=== PATIENT | male | born 1980 | race Caucasian/White ===

== ENCOUNTER 2023-03-24 09:45 | Inpatient (IN) ==
[2023-03-24] MEDS ORDERED: SODIUM CHLORIDE 0.9% 500 ML IV STA (10:27)
[2023-03-24] MEDS ORDERED: KETOROLAC TROMETHAMINE 15 MG/ML VIAL IV STA (10:27)
[2023-03-24 10:33] LABS: POC Urine Bilirubin Negative (Negative); POC Urine Blood Negative (Negative); POC Urine Glucose Normal (Normal); POC Urine Ketones Negative (Negative); POC Urine Leukocytes Negative (Negative); POC Urine Nitrite Negative (Negative); POC Urine Protein Trace (Negative); POC Urine Urobilinogen Normal (Normal); POC Urine pH 5 (4.5-7.5)
[2023-03-24 10:45] LABS: Basophils # (auto) 0.02 K/uL (0.00-0.20); Basophils % (auto) 0.2 %; Eosinophils # (auto) 0.11 K/uL (0.00-0.50); Eosinophils % (auto) 1.4 %; Hematocrit (blood only) 51.1 % (42.0-52.0); Hemoglobin 17.5 g/dl (14.0-18.0); Immature Granulocytes # (auto) 0.02 K/uL (0.01-0.20); Immature Granulocytes % (auto) 0.2 %; Lymphocytes # (auto) 1.16 K/uL (1.20-3.40); Lymphocytes % (auto) 14.5 %; Mean Corpuscular Hemoglobin 28.5 pg (25.0-34.0); Mean Corpuscular Hgb Conc 34.2 g/dL (32.0-36.0); Mean Corpuscular Volume 83.2 fL (80.0-100.0); Monocytes # (auto) 0.47 K/uL (0.11-0.59); Monocytes % (auto) 5.9 %; Neutrophils # (auto) 6.23 K/uL (1.40-6.50); Neutrophils % (auto) 77.8 %; Platelet Count 182 K/uL (130-400); RDW Standard Deviation 36.3 fL (36.4-46.3); Red Blood Count 6.14 M/uL (4.70-6.10); White Blood Count 8.01 K/ul (4.8-10.8)
[2023-03-24 10:49] LABS: Appearance Urine Clear (Clear); Bilirubin Urine Negative (Negative); Blood Urine Negative (Negative); Color Urine Yellow; Glucose Urine UA Negative (Negative); Ketones Urine Negative (Negative); Leukocyte Esterase Urine Negative (Negative); Nitrite Urine Negative (Negative); Protein Urine Negative (Negative); Specific Gravity Urine 1.025 (1.000-1.030); Urobilinogen Urine Negative (Negative); pH Urine 5.5 (4.5-7.5)
[2023-03-24 11:00] LABS: Albumin Globulin Ratio 1.7 (0.9-2); Albumin Level 4.9 gm/dl (3.4-5.0); BUN Creatinine Ratio 12.2 (10-20); Bilirubin,Total 0.5 mg/dl (0.2-1.0); Calcium 10.2 mg/dl (8.6-10.3); Creatinine Clr Calc Pharmacy 94.1 ml/min; Est GFR (African American) 108.2 ml/min; Est GFR (Non-African American) 93.4 ml/min; Globulin 2.9 gm/dl (2.5-4.0); Potassium 3.7 mmol/L (3.5-5.1); Total Protein 7.8 gm/dl (6.0-8.3)
--- NOTE | 2023-03-24 11:36 | Emergency Department Note ---
Impression & Plan Left sided abdominal pain, Partial small bowel obstruction ED Provider Note HISTORY OF PRESENT ILLNESS: Patient is a 42-year-old male presenting with left flank pain. Patient reports he has had pain in his left flank for the last week. Denies any trauma to the back or flank region. Reports that he has a history of kidney stones and initially thought it was for this. He states that the pain has been persistent and a 12 out of 10 for the last few days. He denies any nausea or vomiting. Denies any dysuria or hematuria. He denies any history of abdominal surgeries. He locates the pain to the left mid abdomen with radiation into the left flank and back. Denies any diarrhea. Denies any fevers ROS: as above PHYSICAL EXAM: Constitutional: Patient appears in no acute distress. HENT: Head: Normocephalic and atraumatic. Eyes: EOMI, PERRL Mouth/Throat: Mucous membranes moist. Neck: Trachea midline. Neck supple. Cardiovascular: RRR, No murmurs, rubs or gallops. Intact distal pulses. Pulmonary/Chest: No respiratory distress. Breath sounds clear and equal bilaterally. No wheezes or rales. Abdominal: Abdomen soft, no rebound or guarding. Left-sided abdominal TTP Back: No midline spinal tenderness, no paraspinal tenderness, no CVA tenderness. Musculoskeletal: No edema, tenderness or deformity noted. Skin: Warm and dry. No rash, erythema, pallor or cyanosis Psychiatric: Appropriate mood and affect for situation. Neurological: Alert and keenly responsive. CN II-XII grossly intact, moving all extremities equally and fully. MDM: - Vitals signs showed hypotension and tachycardia. - History obtained via patient. Patient presents with left flank and left abdominal pain. Patient reports he been having pain in his left flank for the last week. Denies any trauma to the back or flank region. He reports a history of kidney stones but this pain is significantly worse than normal. Denies any nausea or vomiting. Nuys any dysuria or hematuria. Denies any diarrhea. He denies any history of abdominal surgeries. - Chronic conditions affecting care: kidney stones - Differential diagnoses include, but are not limited to: UTI; pyelonephritis; ureteral stone; colitis; diverticulitis; small bowel obstruction - Order placed for continuous cardiac monitoring. At this time, monitor showed rate of 100 bpm with normal sinus rhythm, per my interpretation. - External medical records reviewed. - Laboratory workup interpreted by myself showed normal WBC; stable electrolytes - UA negative for infection - CT abdomen/pelvis wo contrast showed distended and fluid-filled loops of small bowel in the left upper quadrant with some surrounding infiltration with 2 apparent transition points representing at least a partial bowel obstruction. - Patient given 1L NS and 15 mg IV toradol in ER. Patient appears comfortable on reassessment. - Discussed case with surgeon station usher, Dr. Baum. She reviewed the patient's images and recommended admission for observation. Patient does not have a significant leukocytosis and is having no change in the bowel movements, and no nausea or vomiting. No surgical intervention at this time - Discussion was had with technical healthcare consultant about patient's case and need for admission - Hospitalist consulted for admission - Patient admitted to Health systemist service for further evaluation and management. ASSESSMENT AND PLAN: Diagnosis: left-sided abdominal pain; partial small bowel obstruction Plan: admit Past Med/Surg History Social History Smoking Status: Never smoker Preferred Language: Palestinian Feels Safe at Home: Yes Allergies Allergies Allergy/AdvReac Type Severity Reaction Status Date / Time No Known Allergies Allergy Unverified 11/15/14 16:35 Results & Data (ED) Vital Signs Vital Signs - 24 hr 03/24/23 10:01 Temperature 36.9 C Temperature Source Temporal Artery Scan Pulse Rate 98 H Respiratory Rate 17 Respiratory Effort / Characteristics Non-Labored Spontaneous Respiratory Depth Normal Blood Pressure 167/103 H Blood Pressure Mean 124 Pulse Oximetry 99 Oxygen Delivery Method Room Air Sepsis Recent Fever Within 48 Hours No Sepsis New/Unexplained Change in Mental Status No Sepsis Action Taken by Nursing No Action Required Laboratory Data 03/24/23 10:20 03/24/23 10:20 Lab Results 03/24/23 03/24/23 Range/Units 10:15 10:20 WBC 8.01 (4.8-10.8) K/ul RBC 6.14 H (4.70-6.10) M/uL Hgb 17.5 (14.0-18.0) g/dl Hct 51.1 (42.0-52.0) % MCV 83.2 (80.0-100.0) fL MCH 28.5 (25.0-34.0) pg MCHC 34.2 (32.0-36.0) g/dL RDW Std Deviation 36.3 L (36.4-46.3) fL RDW Coeff of Alexandra 12.0 (11.5-14.5) % Plt Count 182 (130-400) K/uL MPV 9.0 L (9.4-12.4) fL Immature Gran % (Auto) 0.2 % Neut % (Auto) 77.8 % Lymph % (Auto) 14.5 % [place] % (Auto) 5.9 % Eos % (Auto) 1.4 % Baso % (Auto) 0.2 % Neut # (Auto) 6.23 (1.40-6.50) K/uL Lymph # (Auto) 1.16 L (1.20-3.40) K/uL [place] # (Auto) 0.47 (0.11-0.59) K/uL Eos # (Auto) 0.11 (0.00-0.50) K/uL Baso # (Auto) 0.02 (0.00-0.20) K/uL Immature Gran # (Auto) 0.02 (0.01-0.20) K/uL Sodium 140 (136-145) mmol/L Potassium 3.7 (3.5-5.1) mmol/L Chloride 105 (98-107) mmol/L Carbon Dioxide 27 (21-32) mmol/L Anion Gap 8 (3-11) BUN 12 (6-23) mg/dl Creatinine 0.98 (0.6-1.4) mg/dl Est Cr Clr Drug Dosing 94.1 ml/min Est GFR ( Amer) 108.2 ml/min Est GFR (Non-Af Amer) 93.4 ml/min BUN/Creatinine Ratio 12.2 (10-20) Glucose 93 (70-99(Fasting)) mg/dl Calcium 10.2 (8.6-10.3) mg/dl Total Bilirubin 0.5 (0.2-1.0) mg/dl AST 20 (13-39) U/L ALT 22 (7-52) U/L Alkaline Phosphatase 74 (34-104) U/L Total Protein 7.8 (6.0-8.3) gm/dl Albumin 4.9 (3.4-5.0) gm/dl Globulin 2.9 (2.5-4.0) gm/dl Albumin/Globulin Ratio 1.7 (0.9-2) Urine Color Yellow Urine Appearance Clear (Clear) Urine pH 5.5 (4.5-7.5) POC Urine pH 5 (4.5-7.5) Ur Specific [place] 1.025 (1.000-1.030) Urine Protein Negative (Negative) POC Urine Protein Trace H (Negative) Urine Glucose (UA) Negative (Negative) POC Ur Glucose (UA) Normal (Normal) Urine Ketones Negative (Negative) POC Urine Ketones Negative (Negative) Urine Blood Negative (Negative) POC Urine Blood Negative (Negative) Urine Nitrite Negative (Negative) POC Urine Nitrite Negative (Negative) Urine Bilirubin Negative (Negative) POC Urine Bilirubin Negative (Negative) Urine Urobilinogen Negative (Negative) POC Urine Urobilinogen Normal (Normal) Ur Leukocyte Esterase Negative (Negative) POC U Leukocyte Esteras Negative (Negative) Administered Medications Discontinued Medications Sodium Chloride (Nss) 500 mls @ 999 mls/hr IV .Q31M STA Stop: 03/24/23 10:57 Last Admin: 03/24/23 11:07 Dose: 999 mls/hr Documented By: CPB Ketorolac Tromethamine (Ketorolac Tromethamine 15 Mg/Ml Vial) 15 mg IV ONE STA Stop: 03/24/23 10:28 Last Admin: 03/24/23 11:07 Dose: 15 mg Documented By: CPB Imaging Data Radiologist's Impression: Abdomen/Pelvis CT 03/24/23 11:16 CT SCAN OF THE ABDOMEN AND PELVIS WITHOUT IV CONTRAST CLINICAL HISTORY: Left flank pain. COMPARISON STUDY: No priors. TECHNIQUE: CT scan of the abdomen and pelvis is performed from the lung bases to the proximal femora. Images are reviewed in the axial, sagittal, and coronal planes. IV contrast was not administered for this examination. A dose lowering technique was utilized adhering to the principles of ALARA. CT DOSE: 922.62 mGy.cm FINDINGS: Lung bases: The heart is normal in size and without pericardial effusion. The lung bases are clear. There is a small hiatal hernia. Liver: The unenhanced liver is normal in size, contour, and attenuation. There is no intrahepatic biliary ductal dilatation. Gallbladder: Unremarkable. Spleen: Normal in size and attenuation. Pancreas: Unremarkable. Adrenal glands: Unremarkable. Kidneys: The unenhanced kidneys are normal in size and without hydronephrosis. No renal calculi are identified and there is no ureteral stone. There is no evidence of contour deforming renal mass lesion. Abdominal vasculature: The abdominal aorta is normal in course and caliber. Bowel: There are distended loops of fluid-filled small bowel in the left upper quadrant. These measure up to 3.1 cm in diameter and there is mild strandy infiltration. There are 2 transition points suggested in the left upper quadrant on images #97 and image #141. The upstream and downstream small bowel loops appear decompressed. No thick-walled bowel loops identified. There is no pneumatosis intestinalis or portal venous gas. There is mild colonic diverticulosis without CT evidence of acute diverticulitis. Mild/moderate fecal retention is noted throughout the colon. The appendix is well-visualized and normal. Peritoneum: There is no intraperitoneal free air or abdominal ascites. There is a fat-containing umbilical hernia. Lymphadenopathy: None. Pelvic viscera: The prostate gland is mildly enlarged and heterogeneous. The bladder wall appears circumferentially thickened. There is a small fat- containing right inguinal hernia. Skeletal structures: No lytic or blastic lesions are seen. There is mild sclerotic change in the left sacroiliac joint. IMPRESSION: 1. There are distended and fluid-filled loops of small bowel in the left upper quadrant with mild surrounding infiltration as detailed above. There are 2 apparent transition points, and this likely represents at least a partial small bowel obstruction. This is favored over a nonspecific enteritis. Given the appearance a closed loop type obstruction is not excluded. Surgical evaluation is advised. 2. No focally thick-walled bowel loops identified. There is no pneumatosis intestinalis or portal venous gas. No intraperitoneal free air is seen. 3. No renal calculi are identified. 4. Mild colonic diverticulosis without CT evidence of acute diverticulitis. 5. The bladder wall appears thickened. Correlate with clinical findings and urinalysis. 6. Additional findings as above. ACT 112: Negative or not required by law. Electronically signed by: Lico Aguirre M.D. 03/24/2023 12:58 PM Discharge Plan Visit Data Chief Complaint: Flank Pain Stated Complaint: LEFT SIDE FLANK PAIN ED Provider: Anabella Mckenna Discharge Problem: Left sided abdominal pain, Partial small bowel obstruction Forms Stand Alone Forms: My [facility] Referrals Referrals: PCP,NO [Primary Care Provider] -
--- NOTE | 2023-03-24 13:00 | CT Scan Report ---
CT SCAN OF THE ABDOMEN AND PELVIS WITHOUT IV CONTRAST CLINICAL HISTORY: Left flank pain. COMPARISON STUDY: No priors. TECHNIQUE: CT scan of the abdomen and pelvis is performed from the lung bases to the proximal femora. Images are reviewed in the axial, sagittal, and coronal planes. IV contrast was not administered for this examination. A dose lowering technique was utilized adhering to the principles of ALARA. CT DOSE: 922.62 mGy.cm FINDINGS: Lung bases: The heart is normal in size and without pericardial effusion. The lung bases are clear. T here is a small hiatal hernia. Liver: The unenhanced liver is normal in size, contour, and attenuation. There is no intrahepatic catie iary ductal dilatation. Gallbladder: Unremarkable. Spleen: Normal in size and attenuation. Pancreas: Unremarkable. Adrenal glands: Unremarkable. Kidneys: The unenhanced kidneys are normal in size and without hydronephrosis. No renal calculi are i dentified and there is no ureteral stone. There is no evidence of contour deforming renal mass lesion . Abdominal vasculature: The abdominal aorta is normal in course and caliber. Bowel: There are distended loops of fluid-filled small bowel in the left upper quadrant. These measur e up to 3.1 cm in diameter and there is mild strandy infiltration. There are 2 transition points sugg ested in the left upper quadrant on images #97 and image #141. The upstream and downstream small verónica l loops appear decompressed. No thick-walled bowel loops identified. There is no pneumatosis intestin kyung or portal venous gas. There is mild colonic diverticulosis without CT evidence of acute divertic ulitis. Mild/moderate fecal retention is noted throughout the colon. The appendix is well-visualized and normal. Peritoneum: There is no intraperitoneal free air or abdominal ascites. There is a fat-containing umbi lical hernia. Lymphadenopathy: None. Pelvic viscera: The prostate gland is mildly enlarged and heterogeneous. The bladder wall appears cir cumferentially thickened. There is a small fat-containing right inguinal hernia. Skeletal structures: No lytic or blastic lesions are seen. There is mild sclerotic change in the left sacroiliac joint. IMPRESSION: 1. There are distended and fluid-filled loops of small bowel in the left upper quadrant with mild hanane rounding infiltration as detailed above. There are 2 apparent transition points, and this likely repr esents at least a partial small bowel obstruction. This is favored over a nonspecific enteritis. Give n the appearance a closed loop type obstruction is not excluded. Surgical evaluation is advised. 2. No focally thick-walled bowel loops identified. There is no pneumatosis intestinalis or portal bret ous gas. No intraperitoneal free air is seen. 3. No renal calculi are identified. 4. Mild colonic diverticulosis without CT evidence of acute diverticulitis. 5. The bladder wall appears thickened. Correlate with clinical findings and urinalysis. 6. Additional findings as above. ACT 112: Negative or not required by law. Electronically signed by: Lico Aguirre M.D. 03/24/2023 12:58 PM
--- NOTE | 2023-03-24 14:16 | History & Physical Report ---
Date of Service March 24, 2023 Assessment & Plan (1) Partial small bowel obstruction: Plan: NPO, IV fluids, Consult general surgery Acetaminophen first-line, Toradol second line for pain relief Ondansetron for nausea No current nausea or vomiting to warrant NG tube Plan VTE prophylaxis - low risk Diet - NPO [facility] Admission and Anticipated Discharge Date Admission Date: March 24, 2023 History of Present Illness Chief Complaint: Abdominal pain Primary Care Provider: NO PCP Jerson Arnett is a 42 year old male who presents to the ER with abdominal/flank pain. Symptoms started last week on Saturday (6 days ago) with left sided abdominal pain. Intermittent in nature and felt it might be a kidney stone so increased his fluid intake. He stopped having bowel movements therefore took Dulcolax 2 tabs yesterday and then 3 this morning. He has been having large bowel movements while in the ER. No current nausea/vomiting. He has prior hernia surgeries. No prior history of bowel obstruction. Allergies Allergy/AdvReac Type Severity Reaction Status Date / Time bee venom protein (honey bee) Allergy Severe Body Unverified 03/24/23 14:15 swelling Home Medications Medication Instructions Recorded Confirmed Type melatonin 10 mg tablet 10 mg PO HS PRN Sleep 03/24/23 03/24/23 History Past Med/Surg History Social History Smoking Status: Never smoker Second Hand Exposure: No; Do You Dip or Chew Tobacco: No; Tobacco Cessation Education Requested by Patient: No Hx Alcohol Use: No Hx Substance Use: No Preferred Language: [place]dean Communication Ability: Effective Alto Singer Required: No Beliefs That Will Affect Care: None Current Living Situation: Alone Other Information That Helps Us Care for You: No Feels Safe at Home: Yes Safety Concerns: Feels Safe At This Time Assistive Devices: None Review of Systems Review of Systems: All systems reviewed & are unremarkable except as noted in HPI & below Physical Exam Constitutional: WD/WN, vitals as above Respiratory: normal respiratory effort, lungs clear to auscultation Cardiovascular: RRR, no murmur, no edema Gastrointestinal (Abdomen): Inspection/Auscultation: abdomen normal to inspection; abdomen not distended Percussion/Palpation: + abdomen tender (left sided) and abdomen soft; no guarding and abdomen not rigid Musculoskeletal: no cyanosis or clubbing, extremities motor strength 5/5 Skin: no rashes, warm and dry Neurologic: moves all extremities and awake; not confused Psychiatric: A+Ox3, euthymic affect Results & Data Results & Data Vital Signs (Past 12 Hours) Vital Signs Temp Pulse Pulse Resp BP BP Pulse Ox 03/24/23 14:06 76 18 158/112 H 98 03/24/23 10:01 36.9 C 98 H 17 167/103 H 99 O2 Del Method 03/24/23 14:06 Room Air 03/24/23 10:01 Room Air Laboratory Results Abnormal lab results 03/24/23 03/24/23 Range/Units 10:15 10:20 RBC 6.14 H (4.70-6.10) M/uL RDW Std Deviation 36.3 L (36.4-46.3) fL MPV 9.0 L (9.4-12.4) fL Lymph # (Auto) 1.16 L (1.20-3.40) K/uL POC Urine Protein Trace H (Negative) Diagnostic Findings CT SCAN OF THE ABDOMEN AND PELVIS WITHOUT IV CONTRAST CLINICAL HISTORY: Left flank pain. COMPARISON STUDY: No priors. TECHNIQUE: CT scan of the abdomen and pelvis is performed from the lung bases to the proximal femora. Images are reviewed in the axial, sagittal, and coronal planes. IV contrast was not administered for this examination. A dose lowering technique was utilized adhering to the principles of ALARA. CT DOSE: 922.62 mGy.cm FINDINGS: Lung bases: The heart is normal in size and without pericardial effusion. The lung bases are clear. There is a small hiatal hernia. Liver: The unenhanced liver is normal in size, contour, and attenuation. There is no intrahepatic biliary ductal dilatation. Gallbladder: Unremarkable. Spleen: Normal in size and attenuation. Pancreas: Unremarkable. Adrenal glands: Unremarkable. Kidneys: The unenhanced kidneys are normal in size and without hydronephrosis. No renal calculi are identified and there is no ureteral stone. There is no evidence of contour deforming renal mass lesion. Abdominal vasculature: The abdominal aorta is normal in course and caliber. Bowel: There are distended loops of fluid-filled small bowel in the left upper quadrant. These measure up to 3.1 cm in diameter and there is mild strandy infiltration. There are 2 transition points suggested in the left upper quadrant on images #97 and image #141. The upstream and downstream small bowel loops appear decompressed. No thick-walled bowel loops identified. There is no pneumatosis intestinalis or portal venous gas. There is mild colonic diverticulosis without CT evidence of acute diverticulitis. Mild/moderate fecal retention is noted throughout the colon. The appendix is well-visualized and normal. Peritoneum: There is no intraperitoneal free air or abdominal ascites. There is a fat-containing umbilical hernia. Lymphadenopathy: None. Pelvic viscera: The prostate gland is mildly enlarged and heterogeneous. The bladder wall appears circumferentially thickened. There is a small fat- containing right inguinal hernia. Skeletal structures: No lytic or blastic lesions are seen. There is mild sclerotic change in the left sacroiliac joint. IMPRESSION: 1. There are distended and fluid-filled loops of small bowel in the left upper quadrant with mild surrounding infiltration as detailed above. There are 2 apparent transition points, and this likely represents at least a partial small bowel obstruction. This is favored over a nonspecific enteritis. Given the appearance a closed loop type obstruction is not excluded. Surgical evaluation is advised. 2. No focally thick-walled bowel loops identified. There is no pneumatosis intestinalis or portal venous gas. No intraperitoneal free air is seen. 3. No renal calculi are identified. 4. Mild colonic diverticulosis without CT evidence of acute diverticulitis. 5. The bladder wall appears thickened. Correlate with clinical findings and urinalysis. 6. Additional findings as above. Medications Administered ER medications given: Toradol 15 mg IV Normal saline 500 mL bolus Code Status & VTE Plan Code Status Full VTE Prophylaxis Plan VTE Prophylaxis will be ordered: No PG Care Time/CCT Total # of Minutes Spent Total Time Spent with Patient: Total time spent is greater than 50% in coordination of care (as documented) at patient's floor/unit and/or counseling patient: Coding Level of Care Code 40377 INT INP/OBS CARE 2/55MIN Diagnoses Partial small bowel obstruction K56.600
[2023-03-24] MEDS ORDERED: KETOROLAC TROMETHAMINE 15 MG/ML VIAL IV PRN (16:56)
[2023-03-24] MEDS: LACTATED RINGER'S 1,000 ML IV SCH (17:26)
--- NOTE | 2023-03-24 20:11 | Surgery Consultation ---
<Statement entered by Sánchez Baum, - 03/25/23 09:06> This patient was discussed with the surgical PA. I agreed with the plan. Date of Consultation March 24, 2023 Assessment & Plan (1) Partial small bowel obstruction: The patient has been admitted on the hospital service. From surgical perspective we recommend proceeding as follows: Implement n.p.o. status Provide IV fluid for hydration Provide analgesicsprovide antiemetics The patient does not have an acute abdomen at the present time and he has only had 1 episode of emesis. I therefore feel we can withhold an NG tube at the present time. I did discuss with the patient that if he does have any further emesis or worsening of his abdominal exam the modality of an NG tube will need to be reconsidered. It is unclear if the patient has a small bowel obstruction or is merely suffering from an enteritis. Will continue to monitor the patient clinically with the plan described above. Consideration be given to advancing the patient's diet if he has improvement of his abdominal exam and return of bowel function I did discuss with the nurse who is attending to the patient this evening if patient has any further emesis she is to notify general surgery we will consider placing an NG tube. History of Present Illness Reason for Consultation: Partial small bowel obstruction Attending Physician: Gurdeep Balderas MD History of Present Illness This is a 42-year-old male who presented to the hospital secondary to abdominal pain. The patient notes that his pain has been present for approximately 1 week and is confined to the left upper quadrant of his abdomen. He was taking an [id number] analgesics which she cannot remember the name of which did improve his pain somewhat. He notes that the pain seems to be worse after eating. Patient says over the past week he has not had any nausea or vomiting but did have 1 episode of emesis at approximately 6:00 PM on 03/24/2023. He has not had any emesis since. He has not had any fevers, shakes, or chills. He notes that his most recent bowel movement was approximately 3:30 PM on 03/23/2023. Since arrival to the hospital he has not been passing any flatus. The patient notes that he has never had a colonoscopy. He has never had any prior abdominal surgeries. As the patient's pain has been present for a week and has been getting somewhat worse he presented to the emergency department for further evaluation. Since arrival to hospital the patient has had labs and imaging which I independent reviewed. Patient did have a CT scan of the abdomen pelvis which showed patient had some distended and fluid-filled loops of small bowel in the left upper quadrant with some surrounding infiltration. Interpreted radiologist felt there to transition points representing a partial small bowel obstruction. He could not exclude a closed-loop obstruction. There is no pneumatosis intestinalis or portal venous gas. There is no intraperitoneal free air. Labs include a CBC her white blood cell count, hemoglobin, hematocrit, and platelet count were all normal. Chemistry profile showed sodium and potassium along with the BUN and creatinine were normal. There is no elevation of his LFTs. Urinalysis was not indicative of infection. At the time of my interview the patient was resting comfortably in bed and he was in no distress. Concerning past surgical history he denies any prior surgeries Concerning past medical history he denies any medical problems Concerning social history he does not smoke Concerning family history he did not report any family history of cancer. 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 Beliefs That Will Affect Care: None Current Living Situation: Alone Other Information That Helps Us Care for You: No Feels Safe at Home: Yes Safety Concerns: Feels Safe At This Time Assistive Devices: None Review of Systems Constitutional: no fever and no chills Ear, Nose, Mouth, Throat: no hearing loss Respiratory: no cough and no dyspnea Cardiovascular: no chest pain Gastrointestinal: as per Subjective / HPI Genitourinary: no dysuria Musculoskeletal: no back pain Integumentary: no rash Neurologic: no localized weakness Physical Exam Constitutional: WD/WN, vitals as above Eyes: no conjunctival abnormality ENMT: Ears: no hearing impairment and no external ear abnormality Mouth: no oropharynx abnormality Neck: trachea midline Respiratory: normal respiratory effort; no respiratory distress and no labored breathing Cardiovascular: Rate/Rhythm: regular rate and regular rhythm Gastrointestinal (Abdomen): Abdomen is soft and nondistended. There is no tympany to percussion. Patient did have pain with palpation on the left upper quadrant. There is no rebound tenderness or guarding or signs of peritonitis. Bowel sounds are present. Musculoskeletal: No calf tenderness Skin: no rashes Neurologic: moves all extremities Psychiatric: A+Ox3, euthymic affect Results & Data Vital Signs (Past 12 Hours) Vital Signs Temp Pulse Pulse Resp BP BP Pulse Ox 03/24/23 20:04 37.4 C 61 18 157/73 H 93 03/24/23 17:10 130/83 03/24/23 16:59 37.2 C 83 16 165/68 H 97 03/24/23 16:44 88 18 141/108 H 98 03/24/23 14:06 76 18 158/112 H 98 03/24/23 10:01 36.9 C 98 H 17 167/103 H 99 O2 Del Method 03/24/23 20:04 Room Air 03/24/23 17:10 03/24/23 16:59 Room Air 03/24/23 16:44 Room Air 03/24/23 14:06 Room Air 03/24/23 10:01 Room Air PG Care Time/CCT Total # of Minutes Spent Total Time Spent with Patient: Total time spent is greater than 50% in coordination of care (as documented) at patient's floor/unit and/or counseling patient: Coding Level of Care Code 80180 IN/OBS CONSULT LVL 5,80M Diagnoses Partial small bowel obstruction K56.600
[2023-03-24] MEDS ORDERED: ONDANSETRON INJ 2 MG/ML 2 ML VIAL IV PRN (20:52)
[2023-03-24] MEDS: FAMOTIDINE 20 MG in SYRINGE 3 ML IV SCH (21:35)
[2023-03-25] MEDS: LACTATED RINGER'S 1,000 ML IV SCH ×3 (01:11→17:27)
[2023-03-25] MEDS: ACETAMINOPHEN 1,000 MG/100 ML VIAL IV PRN ×2 (04:58→10:38)
[2023-03-25] MEDS ORDERED: guaiFENesin 600 MG TABCR PO ONE (05:21)
[2023-03-25] MEDS: FLUTICASONE PROPIONATE NA SPR 16 GM BTL SCH (07:39)
[2023-03-25 08:02] LABS: BUN Creatinine Ratio 18.6 (10-20); Calcium 8.7 mg/dl (8.6-10.3); Creatinine Clr Calc Pharmacy 95.1 ml/min; Est GFR (African American) 109.6 ml/min; Est GFR (Non-African American) 94.6 ml/min; Potassium 3.9 mmol/L (3.5-5.1)
[2023-03-25 09:05] LABS: Basophils # (auto) 0.02 K/uL (0.00-0.20); Basophils % (auto) 0.3 %; Eosinophils % (auto) 1.3 %; Hematocrit (blood only) 41.8 % (42.0-52.0); Hemoglobin 14.2 g/dl (14.0-18.0); Immature Granulocytes # (auto) 0.02 K/uL (0.01-0.20); Immature Granulocytes % (auto) 0.3 %; Lymphocytes # (auto) 1.33 K/uL (1.20-3.40); Lymphocytes % (auto) 17.1 %; Mean Corpuscular Hemoglobin 28.4 pg (25.0-34.0); Mean Corpuscular Volume 83.6 fL (80.0-100.0); Mean Platelet Volume 9.2 fL (9.4-12.4); Monocytes # (auto) 0.65 K/uL (0.11-0.59); Monocytes % (auto) 8.3 %; Neutrophils # (auto) 5.68 K/uL (1.40-6.50); Neutrophils % (auto) 72.7 %; Platelet Count 164 K/uL (130-400); RDW Coefficient of Variation 11.9 % (11.5-14.5); RDW Standard Deviation 36.1 fL (36.4-46.3)
--- NOTE | 2023-03-25 09:17 | Surgery Progress Note ---
Date of Service March 25, 2023 Assessment & Plan (1) Partial small bowel obstruction: Plan: CT evidence for partial small bowel obstruction. No significant cysts surgeries recently. The patient had a prior hernia repair he states 20 years ago somewhere along the lower abdomen per the patient. Away from his current site of partial obstruction. Relatively benign abdomen with significantly resolved symptoms. Hemodynamically stable with ongoing stable vital signs, afebrile. Still without leukocytosis with no antibiotic coverage. No acute surgical intervention. Continue n.p.o. for today IV fluids for hydration Provide analgesics. Patient's pain is well-controlled with Tylenol, Ibuprofen is also on board. He is not requiring narcotics. Admission and Anticipated Discharge Date Admission Date: March 24, 2023 Subjective Patient was seen and examined this a.m. He was standing up out of bed on his way out to walk in the halls when I entered the room. He says he feels improvement in his symptoms since admission. He is not currently complaining of abdominal pain but notes some discomfort with pressure or to that area. He apparently had an episode of emesis overnight but denies nausea and has not had any further episodes since then. He has remained afebrile through the admission process and hemodynamically stable. The patient is very dynamic, interactive and primarily is concerned with how long should he tell his boss he needs to be out of work. Physical Exam Constitutional: average body habitus; not ill appearing, not in distress and not diaphoretic Afebrile, appears nontoxic Respiratory: normal respiratory effort; no respiratory distress, no labored breathing and does not use accessory muscles Cardiovascular: Rate/Rhythm: regular rate; not tachycardic Gastrointestinal (Abdomen): Abdomen is soft, nondistended. The patient states he has mild tenderness when the left flank and upper quadrant are palpated. He does not display any voluntary guarding, no rebound tenderness. Results & Data Vital Signs (Past 12 Hours) Vital Signs Temp Pulse Resp BP Pulse Ox O2 Del Method 03/25/23 07:34 37.0 C 81 18 145/96 H 96 Room Air 03/25/23 04:54 36.5 C 88 18 139/86 96 Room Air PG Care Time/CCT Total # of Minutes Spent Total Time Spent with Patient: Total time spent is greater than 50% in coordination of care (as documented) at patient's floor/unit and/or counseling patient: Coding [place] [address] SUB INP/OBS CARE 2MIN Patient Type Established History Expanded Problem Focused Exam Expanded Problem Focused Medical Decision Making Low Complexity Diagnoses Partial small bowel obstruction K56.600
--- NOTE | 2023-03-25 09:32 | Hospitalist Progress Note ---
Date of Service March 25, 2023 Assessment & Plan (1) Partial small bowel obstruction: Plan: -General surgery consult - Keep NPO - Continue IV fluids - Acetaminophen first-line, Toradol second line for pain relief - Ondansetron for nausea - Encourage ambulation Plan VTE prophylaxis - low risk, encourage ambulation Disposition - continued inpatient stay Admission and Anticipated Discharge Date Admission Date: March 24, 2023 Supervising Physician Co-Signing Physician Notes PA Supervision Note: I did not personally see or examine the patient today, but I verified all morales points of KIMBERLY Yepez's assessment and plan with the following exceptions/additions: None Subjective 915 - Patient seen lying in bed. Has been passing gas, but no BM yet. Denies nausea or emesis since last night. Ambulating the halls without issue. No abdominal pain at rest but states painful when laying on his left side. Denies CP or SOB. Review of Systems Review of Systems: All systems reviewed & are unremarkable except as noted in Subjective Physical Exam Physical Exam: General: WN/WD, NAD, VS as above Resp: normal respiratory effort, lungs clear to auscultation CV: RRR, no murmur, Abd: bowel sounds x4 quadrants, mildly tender LUQ Extremities: Moves all extremities, no edema Neuro: A&O x3, Results & Data Results & Data Vital Signs (Past 12 Hours) Vital Signs Temp Pulse Resp BP Pulse Ox O2 Del Method 03/25/23 07:34 37.0 C 81 18 145/96 H 96 Room Air 03/25/23 04:54 36.5 C 88 18 139/86 96 Room Air Laboratory Results CBC and chemistry reviewed Diagnostic Findings CT scan reviewed PG Care Time/CCT Total # of Minutes Spent Total Time Spent with Patient: Total time spent is greater than 50% in coordination of care (as documented) at patient's floor/unit and/or counseling patient: Coding Level of Care Code 89150 SUB INP/OBS CARE 2/35MIN Diagnoses Partial small bowel obstruction K56.600
[2023-03-25] MEDS: FAMOTIDINE 20 MG in SYRINGE 3 ML IV SCH (20:48)
[2023-03-26] MEDS: LACTATED RINGER'S 1,000 ML IV SCH ×3 (01:08→18:34)
[2023-03-26 07:13] LABS: Basophils # (auto) 0.02 K/uL (0.00-0.20); Basophils % (auto) 0.3 %; Eosinophils # (auto) 0.14 K/uL (0.00-0.50); Eosinophils % (auto) 2.1 %; Hematocrit (blood only) 41.3 % (42.0-52.0); Hemoglobin 14.6 g/dl (14.0-18.0); Immature Granulocytes # (auto) 0.01 K/uL (0.01-0.20); Immature Granulocytes % (auto) 0.1 %; Lymphocytes # (auto) 1.27 K/uL (1.20-3.40); Lymphocytes % (auto) 18.9 %; Mean Corpuscular Hemoglobin 28.6 pg (25.0-34.0); Mean Corpuscular Hgb Conc 35.4 g/dL (32.0-36.0); Monocytes # (auto) 0.43 K/uL (0.11-0.59); Monocytes % (auto) 6.4 %; Neutrophils # (auto) 4.84 K/uL (1.40-6.50); Neutrophils % (auto) 72.2 %; Platelet Count 161 K/uL (130-400); RDW Coefficient of Variation 11.7 % (11.5-14.5); RDW Standard Deviation 34.2 fL (36.4-46.3); White Blood Count 6.71 K/ul (4.8-10.8)
[2023-03-26 07:27] LABS: BUN Creatinine Ratio 12.6 (10-20); Creatinine Clr Calc Pharmacy 97.1 ml/min; Est GFR (African American) 112.4 ml/min; Magnesium 1.8 mg/dl (1.7-2.4); Phosphorus 2.6 mg/dl (2.5-4.9); Potassium 3.8 mmol/L (3.5-5.1)
[2023-03-26] MEDS: FLUTICASONE PROPIONATE NA SPR 16 GM BTL SCH (07:56)
--- NOTE | 2023-03-26 10:18 | Surgery Progress Note ---
Date of Service March 26, 2023 Assessment & Plan (1) Partial small bowel obstruction: (2) Left-sided thoracic back pain: Plan: Patient has not had any of his symptoms of nausea or vomiting Plan Very minimal abdominal symptoms remaining just with bowel rest. He is has remanied afebrile and HD stable. Patient may have sips of clears. He may have a suppository to help with a BM in case he has a component of constipation. Do not give any oral laxatives. Will follow up in the am. Admission and Anticipated Discharge Date Admission Date: March 24, 2023 Subjective Patient was seen and examined this a.m. He admits to feeling significantly improved, he continues to pass gas. The pain that he feels currently is associated with his left upper flank and posterior thorax to the point that he questioned broken ribs when this first started at home. At the same time he does admit that he did have some left upper quadrant discomfort which now only bothers him when it is deeply palpated. He denies any nausea or vomiting. He does admit to the feeling of constipation and says he passed 1 small rabbit pellet of stool. He says this has been somewhat of an issue lately. Physical Exam Constitutional: no acute distress, not ill appearing, not in distress and not diaphoretic Respiratory: normal respiratory effort; no respiratory distress, no labored breathing and does not use accessory muscles Cardiovascular: Rate/Rhythm: regular rate; not tachycardic Gastrointestinal (Abdomen): Abdomen is soft. Nondistended Minimally tender to palpation of the left upper quadrant More tender at the left upper posterior thorax compared to the left upper quadrant abdomen. No crepitus or crackling noted. Results & Data Vital Signs (Past 12 Hours) Vital Signs Temp Pulse Resp BP Pulse Ox O2 Del Method 03/26/23 07:56 37.2 C 82 16 167/87 H 98 Room Air PG Care Time/CCT Total # of Minutes Spent Total Time Spent with Patient: Total time spent is greater than 50% in coordination of care (as documented) at patient's floor/unit and/or counseling patient: Coding Level of Care Code 29622 SUB INP/OBS CARE 1/25MIN Diagnoses Partial small bowel obstruction K56.600 Acute left-sided thoracic back pain M54.6 Chronicity: acute (2) Left-sided thoracic back pain Chronicity: acute Qualified Code(s): M54.6 - Pain in thoracic spine
[2023-03-26] MEDS ORDERED: bisacodyL 10 MG SUPP PR PRN (12:20)
--- NOTE | 2023-03-26 13:09 | Hospitalist Progress Note ---
Date of Service March 26, 2023 Assessment & Plan (1) Partial small bowel obstruction: Plan: -General surgery consult - Advanced to sips of clears - Continue IV fluids - okay for suppository - Acetaminophen first-line, Toradol second line for pain relief - Ondansetron for nausea - Encourage ambulation Plan VTE prophylaxis - low risk, encourage ambulation Disposition - continued inpatient stay Admission and Anticipated Discharge Date Admission Date: March 24, 2023 Supervising Physician Co-Signing Physician Notes KIMBERLY Supervision Note: I did not personally see or examine the patient today, but I verified all morales points of KIMBERLY Yepez's assessment and plan with the following exceptions/additions:ok to trial small amounts of clears as no pain, passing flatus and some stool, no nausea. Subjective Patient seen lying in bed, but was previously ambulating in the halls. States that his abdominal pain is much better, not currently having any. Has had 2 "pellet sized" bowel movements, but has multiple urges to have a BM. Does not usually struggle with constipation. Urinating without issue. Diet advanced to sips of clears, but has not had any water yet. Denies CP or SOB. Review of Systems Review of Systems: All systems reviewed & are unremarkable except as noted in Subjective Physical Exam Physical Exam: General: WN/WD, NAD, VS as above Resp: normal respiratory effort, lungs clear to auscultation CV: RRR, no murmur. Does tell me he had been told he had a heart murmur before but I do not appreciate this on exam today. Abd: bowel sounds x4 quadrants, nontender to palpation Extremities: Moves all extremities, no edema Neuro: A&O x3, Results & Data Results & Data Vital Signs (Past 12 Hours) Vital Signs Temp Pulse Resp BP Pulse Ox O2 Del Method 03/26/23 07:56 37.2 C 82 16 167/87 H 98 Room Air Diagnostic Findings CBC, chemistry, Mag, Phos reviewed PG Care Time/CCT Total # of Minutes Spent Total Time Spent with Patient: Total time spent is greater than 50% in coordination of care (as documented) at patient's floor/unit and/or counseling patient: Coding Level of Care Code 60329 SUB INP/OBS CARE 2/35MIN Diagnoses Partial small bowel obstruction K56.600
[2023-03-26] MEDS: FAMOTIDINE 20 MG in SYRINGE 3 ML IV SCH (20:41)
[2023-03-27] MEDS: LACTATED RINGER'S 1,000 ML IV SCH ×2 (02:17→10:04)
[2023-03-27 07:52] LABS: Basophils # (auto) 0.02 K/uL (0.00-0.20); Basophils % (auto) 0.3 %; Eosinophils % (auto) 3.3 %; Hematocrit (blood only) 42.1 % (42.0-52.0); Hemoglobin 14.9 g/dl (14.0-18.0); Immature Granulocytes # (auto) 0.01 K/uL (0.01-0.20); Immature Granulocytes % (auto) 0.2 %; Lymphocytes # (auto) 1.37 K/uL (1.20-3.40); Lymphocytes % (auto) 22.5 %; Mean Corpuscular Hemoglobin 28.7 pg (25.0-34.0); Mean Corpuscular Hgb Conc 35.4 g/dL (32.0-36.0); Mean Corpuscular Volume 81.1 fL (80.0-100.0); Mean Platelet Volume 9.1 fL (9.4-12.4); Monocytes # (auto) 0.49 K/uL (0.11-0.59); Monocytes % (auto) 8.1 %; Neutrophils # (auto) 3.99 K/uL (1.40-6.50); Neutrophils % (auto) 65.6 %; Platelet Count 165 K/uL (130-400); RDW Coefficient of Variation 11.8 % (11.5-14.5); RDW Standard Deviation 34.1 fL (36.4-46.3); Red Blood Count 5.19 M/uL (4.70-6.10); White Blood Count 6.08 K/ul (4.8-10.8)
[2023-03-27 08:17] LABS: BUN Creatinine Ratio 7.6 (10-20); Calcium 9.3 mg/dl (8.6-10.3); Creatinine Clr Calc Pharmacy 100.2 ml/min; Est GFR (African American) 116.8 ml/min; Est GFR (Non-African American) 100.8 ml/min; Magnesium 1.9 mg/dl (1.7-2.4); Potassium 3.9 mmol/L (3.5-5.1)
[2023-03-27] MEDS: FLUTICASONE PROPIONATE NA SPR 16 GM BTL SCH (08:41)
--- NOTE | 2023-03-27 09:30 | Surgery Progress Note ---
Date of Service March 27, 2023 Assessment & Plan (1) Partial small bowel obstruction: Plan: Clinically resolved potential partial SBO. May have a full liquid diet today. May Hep-Lock IV fluids. May have chemical DVT prophylaxis. Admission and Anticipated Discharge Date Admission Date: March 24, 2023 Subjective Patient seen and examined this a.m. he tolerates clear liquids well and is denying any abdominal pain. He also denies nausea vomiting. He states he continues to pass gas and had a large bowel movement after suppository yesterday evening Physical Exam Constitutional: not ill appearing, not in distress and not diaphoretic Afebrile Respiratory: normal respiratory effort; no respiratory distress, no labored breathing and does not use accessory muscles Cardiovascular: Rate/Rhythm: regular rate; not tachycardic Gastrointestinal (Abdomen): Abdomen soft, slightly protuberant but nondistended, completely benign exam. Nontender to palpation Results & Data Vital Signs (Past 12 Hours) Vital Signs Temp Pulse Resp BP Pulse Ox O2 Del Method 03/27/23 07:22 36.4 C L 74 18 148/97 H 99 Room Air PG Care Time/CCT Total # of Minutes Spent Total Time Spent with Patient: Total time spent is greater than 50% in coordination of care (as documented) at patient's floor/unit and/or counseling patient: Coding Level of Care Code 24553 SUB INP/OBS CARE 25MIN Diagnoses Partial small bowel obstruction K56.600
--- NOTE | 2023-03-27 17:36 | Hospitalist Progress Note ---
Date of Service March 27, 2023 Assessment & Plan (1) Partial small bowel obstruction: Plan: -General surgery consult - Advanced to full liquids - okay for suppository - Discontinued fluids - Acetaminophen first-line, Toradol second line for pain relief - Ondansetron for nausea - Encourage ambulation Plan VTE prophylaxis - low risk, encourage ambulation/ SCDs Disposition - continued inpatient stay, hopeful for discharge tomorrow Admission and Anticipated Discharge Date Admission Date: March 24, 2023 Supervising Physician Co-Signing Physician Notes PA Supervision Note: I did not personally see or examine the patient today, but I verified all morales points of KIMBERLY Yepez's assessment and plan with the following exceptions/additions:none Subjective patient lying in bed, however continues to ambulate in the halls. Reports continues to feel wellno abdominal pain, nausea or vomiting. Does report that he had a large bowel movement this morning after having the suppository last night. And is continue to pass gas. Tolerating the full liquid diet without issue, reports that he is still hungry after clearing his plate. Denies any chest pain or shortness of breath Review of Systems Review of Systems: All systems reviewed & are unremarkable except as noted in Subjective Physical Exam Physical Exam: General: WN/WD, NAD, VS as above Resp: normal respiratory effort, lungs clear to auscultation CV: RRR, no murmur. Does tell me he had been told he had a heart murmur before but I do not appreciate this on exam today. Abd: bowel sounds x4 quadrants, nontender to palpation Extremities: Moves all extremities, no edema Neuro: A&O x3, Results & Data Results & Data Vital Signs (Past 12 Hours) Vital Signs Temp Pulse Resp BP Pulse Ox O2 Del Method 03/27/23 07:22 36.4 C L 74 18 148/97 H 99 Room Air Laboratory Results CBC, chemistry magnesium reviewed PG Care Time/CCT Total # of Minutes Spent Total Time Spent with Patient: Total time spent is greater than 50% in coordination of care (as documented) at patient's floor/unit and/or counseling patient: Coding Level of Care Code 03759 SUB INP/OBS CARE 2/35MIN Diagnoses Partial small bowel obstruction K56.600
[2023-03-27] MEDS: FAMOTIDINE 20 MG in SYRINGE 3 ML IV SCH (19:51)
[2023-03-28] MEDS: FLUTICASONE PROPIONATE NA SPR 16 GM BTL SCH (08:41)
--- NOTE | 2023-03-28 10:10 | Surgery Progress Note ---
Date of Service March 28, 2023 Assessment & Plan (1) Left-sided thoracic back pain: Plan: Result (2) Partial small bowel obstruction: Plan: Resolved (3) Left sided abdominal pain: Plan: Resolved Plan Remains afebrile without leukocytosis and resolved symptoms. Advance to a low fiber and mechanical soft diet this a.m. Patient may be discharged to follow-up with gastroenterology for his recent change in bowel habits suffering from off-and-on constipation. He may have a Dulcolax suppository this a.m. He may start taking a daily stool softener now and continue at home. He should be discharged with instruction to start a bowel regimen by Saturday if abdominal pain or nausea do not return. Recommend MiraLAX. Low fiber diet for the next week. Thereafter he may slowly incorporate fiber back into his diet. Admission and Anticipated Discharge Date Admission Date: March 24, 2023 Subjective Patient seen and examined this a.m. He continues to deny return of abdominal symptoms now that he has tolerated a day of clear liquids followed by a day of full liquid diet. He also states he was able to sleep on his left side last night with no issues. He denies nausea, vomiting. He does still complain of, the patient like stools since his 1 bowel movement the day before yesterday. Physical Exam Constitutional: not ill appearing, not disheveled, not in distress and not diaphoretic Respiratory: normal respiratory effort; no respiratory distress, no labored breathing and does not use accessory muscles Cardiovascular: Rate/Rhythm: regular rate; not tachycardic Gastrointestinal (Abdomen): Soft, nondistended, nontender Results & Data Vital Signs (Past 12 Hours) Vital Signs Temp Pulse Resp BP Pulse Ox O2 Del Method 03/28/23 07:07 36.5 C 77 16 125/85 95 Room Air PG Care Time/CCT Total # of Minutes Spent Total Time Spent with Patient: Total time spent is greater than 50% in coordination of care (as documented) at patient's floor/unit and/or counseling patient: Coding [place] [address] SUB INP/OBS CARE 1/25MIN Patient Type Established History Problem Focused Exam Problem Focused Medical Decision Making Straight Forward Diagnoses Acute left-sided thoracic back pain M54.6 Chronicity: acute Partial small bowel obstruction K56.600 Left sided abdominal pain R10.9 (1) Left-sided thoracic back pain Chronicity: acute Qualified Code(s): M54.6 - Pain in thoracic spine
--- NOTE | 2023-03-28 11:53 | Discharge Summary ---
Discharge Summary Date of Service March 28, 2023 Admission HPI Per Admitting Provider Jerson Arnett is a 42 year old male who presents to the ER with abdominal/flank pain. Symptoms started last week on Saturday (6 days ago) with left sided abdominal pain. Intermittent in nature and felt it might be a kidney stone so increased his fluid intake. He stopped having bowel movements therefore took Dulcolax 2 tabs yesterday and then 3 this morning. He has been having large bowel movements while in the ER. No current nausea/vomiting. He has prior hernia surgeries. No prior history of bowel obstruction. Principal Dx & Hospital Course #1 = Principal Diagnosis (1) Partial small bowel obstruction: -General surgery consult - Advanced to low fiber - prn suppository - Daily colace - Daily Miralax starting 04/01 - Follow up with GI for ongoing bowel issues Tylenol PRN for pain Plan Discharge to home with GI follow up. Discharge Exam General: WN/WD, NAD, VS as above Resp: normal respiratory effort, lungs clear to auscultation CV: RRR, no murmur. Does tell me he had been told he had a heart murmur before but I do not appreciate this on exam today. Abd: bowel sounds x4 quadrants, nontender to palpation Extremities: Moves all extremities, no edema Neuro: A&O x3, Updated Medication List Medication Instructions Recorded Confirmed Type melatonin 10 mg tablet 10 mg PO HS PRN Sleep 03/24/23 03/24/23 History bisacodyl 10 mg rectal suppository 10 mg VT Q12 PRN constipation #30 03/28/23 Rx ea docusate sodium 100 mg capsule 100 mg PO DAILY #30 caps 03/28/23 Rx (Colace) fluticasone propionate 50 2 spray NA DAILY PRN Congestion 03/28/23 Rx mcg/actuation nasal #16 grams spray,suspension Hospital Stay Data Consultations 03/24/23 13:43 ED Decision to Admit Stat 03/24/23 14:15 Consult General Surgery Routine Diagnostic Imagining Performed 03/24/23 11:16 CT Abd and Pelvis [CT abd pelvis wo con] Stat Pending Results Patient Have Any Pending Studies at Discharge: No Discharge Instructions Given to Patient (Per Discharging Provider) Mr. Arnett, Robe were hospitalized after having a small bowel obstruction, possibly caused by constipation. This had resolved by the time of discharge. To prevent this from recurring you should take daily stool softeners and continue on a low fiber diet. I attached information on low fiber diet below. Take stool softener daily - Colace Starting Sunday 04/01 - take Miralax once a day, dissolve this in 8oz of any liquid You can use Ducolax (Bisacodyl) suppositories once a day as needed. By April if you are continuing to feel well you can SLOWLY add fiber back into your diet. If you have any new or worsening symptoms, please return to the ER. It was our pleasure taking care of you, Ashley Yepez PA-C Total Time Total Time Spent Total Time Spent (In Minutes): 35 Supervising Physician Co-Signing Physician Notes PA Supervision Note: I personally saw and examined the patient. I verified all morales points and agree with KIMBERLY Yepez with the following exceptions and/or additions: S-Feeling better, no flank or abd pain, moving bowels, allan low fiber diet.Plans on going to work today after discharge O- Vitals reviewed Gen: [AAOx3, NAD] HEENT: [anicteric sclerae, EOMI] Abd: soft NT ND A/P-42 yo male with SBO, now resolved. Lw fiber diet at home, continue Miralax f/u with GI We have asked the nurse case manager to get him established with a new PCP as he does not have one Coding Level of Care Code 06428 INP/OBS DISCH >30 MIN Diagnoses Partial small bowel obstruction K56.600
== END 2023-03-28 12:57 | disposition home or self-care (01) | DRG 390 ==
LOC: ED 09:45 → 3W 14:14 → SUATTDRO 14:14 → 3W 16:45